=== PATIENT | female | born 1985 | race Two or more races ===

== ENCOUNTER 2019-01-06 14:41 | Emergency (ER) | payer MEDICAID ==
[~2019-01-06] VITALS: Ht 165.1 cm; Wt 81.6 kg
[2019-01-06 16:13] VITALS: BP 142/82
[2019-01-06] MEDS ORDERED: KETOROLAC TROMETH 60MG/2ML VIAL IM ONE (16:45)
[2019-01-06] MEDS ORDERED: cefTRIAXone SOD 1,000 MG VL IM ONE (16:45)
== END 2019-01-06 17:22 | disposition home or self-care (01) ==
LOC: ER 14:41
DX: H66.93 Otitis media, unspecified, bilateral (principal); J03.90 Acute tonsillitis, unspecified
CPT/HCPCS: 81002; 93005; 96372; 99283; J0696; J1885

== ENCOUNTER 2019-02-16 14:53 | Emergency (ER) | payer MEDICAID ==
[~2019-02-16] VITALS: Ht 165.1 cm; Wt 81.6 kg
[2019-02-16 16:04] LABS: Basophils # (auto) 0.1 uL; Basophils % (auto) 0.6 % (0.0-2.0); Eosinophils # (auto) 0.2 uL; Eosinophils % (auto) 1.9 % (0.0-7.0); Hemoglobin 15.5 g/dL (12.2-16.2); Lymphocytes # (auto) 1.1 uL; Lymphocytes % (auto) 12.3 % (10.0-50.0); Mean Corpuscular Hemoglobin 29.2 pg (28.0-32.0); Mean Corpuscular Hgb Conc. 33.7 g/dL (32.0-36.0); Mean Corpuscular Volume 86.5 fL (80.0-100.0); Monocytes # (auto) 0.4 uL; Monocytes % (auto) 3.9 % (0.0-12.0); Neutrophils # (auto) 7.6 uL; Neutrophils % (auto) 81.3 % (37.0-80.0); Platelet Count (auto) 360 10^3/uL (140-450); Red Blood Cells 5.32 10^6/uL (4.0-5.20); White Blood Cell 9.3 10^3/uL (4.4-10.8)
[2019-02-16 16:09] LABS: Urine Amorphous Crystal MOD /hpf (None Seen); Urine Bacteria NONE SEEN /hpf (None Seen); Urine Blood 3+ /uL (Negative); Urine Mucus MODERATE (None Seen); Urine Specific Gravity 1.032 (1.001-1.035); Urine WBC 9 /hpf (0 - 5)
[2019-02-16 16:11] LABS: INR 0.96 (0.9-1.15); Partial Thromboplastin Time 28.8 sec (23.78-33.04); Prothrombin Time 10.3 sec (9.27-12.13)
[2019-02-16 16:15] LABS: Albumin 4.1 g/dL (3.4-5.0); Anion Gap 7 (5-15); Blood Urea Nitrogen 14 mg/dL (7-18); Calcium 8.9 mg/dL (8.5-10.1); Carbon Dioxide 24 mmol/L (21-32); Chloride 109 mmol/L (98-107); Glucose 91 mg/dL (74-106); Magnesium 2.4 mg/dL (1.6-2.6); Potassium 3.8 mmol/L (3.5-5.1); Sodium 140 mmol/L (136-145)
[2019-02-16 16:22] LABS: Alanine Aminotransferase 47 U/L (13-56); Alkaline Phosphatase 108 U/L (45-117); Aspartate Aminotransferase 28 U/L (15-37); BUN/Creatinine Ratio 20.6; Bilirubin, Total 0.7 mg/dL (0.2-1.0); GFR African American 129 mL/min; GFR Non-African American 107 mL/min; Total Protein 8.1 g/dL (6.4-8.2)
[2019-02-16 20:24] VITALS: BP 109/79
== END 2019-02-16 19:42 | disposition home or self-care (01) ==
LOC: ER 14:57
DX: N39.0 Urinary tract infection, site not specified (principal); R19.7 Diarrhea, unspecified; R11.2 Nausea with vomiting, unspecified; R00.1 Bradycardia, unspecified; Z98.51 Tubal ligation status
CPT/HCPCS: 36415; 80053; 81001; 81025; 83735; 83880; 84484; 85025; 85610; 85730; 93005

== ENCOUNTER 2020-04-11 09:58 | Inpatient (IN) | payer MEDICAID ==
[~2020-04-11] VITALS: Ht 165.1 cm; Wt 79.3 kg
[2020-04-11 10:40] LABS: Basophils # (auto) 0.1 10 ^3/uL (0-0.2); Basophils % (auto) 0.7 % (0.0-2.0); Eosinophils # (auto) 0 10 ^3/uL (0-0.8); Eosinophils % (auto) 0.2 % (0.0-7.0); Hematocrit 39.7 % (36.0-46.0); Hemoglobin 13.3 g/dL (12.2-16.2); Lymphocytes # (auto) 1.6 10 ^3/uL (0.4-5.4); Lymphocytes % (auto) 11.6 % (10.0-50.0); Mean Corpuscular Hemoglobin 29.2 pg (28.0-32.0); Mean Corpuscular Hgb Conc. 33.4 g/dL (32.0-36.0); Mean Corpuscular Volume 87.3 fL (80.0-100.0); Monocytes # (auto) 0.5 10 ^3/uL (0-1.3); Monocytes % (auto) 3.7 % (0.0-12.0); Neutrophils # (auto) 11.9 10 ^3/uL (1.6-8.6); Neutrophils % (auto) 83.8 % (37.0-80.0); Platelet Count (auto) 349 10^3/uL (140-450); Red Blood Cells 4.55 10^6/uL (4.0-5.20); White Blood Cell 14.2 10^3/uL (4.4-10.8)
[2020-04-11 10:56] LABS: Urine Amorphous Crystal FEW /hpf (None Seen); Urine Bacteria NONE SEEN /hpf (None Seen); Urine Blood TRACE /uL (Negative); Urine Mucus FEW (None Seen); Urine Specific Gravity 1.021 (1.001-1.035); Urine WBC <1 /hpf (0 - 5)
[2020-04-11 11:13] LABS: Albumin 3.7 g/dL (3.4-5.0)
[2020-04-11 11:17] LABS: BUN/Creatinine Ratio 21.4; Bilirubin, Total 0.7 mg/dL (0.2-1.0); Total Protein 7.2 g/dL (6.4-8.2)
[2020-04-11] MEDS ORDERED: SODIUM CHLORIDE 0.9% 2,000 ML IV ONE (12:15)
[2020-04-11] MEDS ORDERED: MORPHINE SULFATE 4 MG/ML SYR/VIAL IV ONE (12:15)
[2020-04-11] MEDS ORDERED: cefTRIAXone 1GM/50ML D5W 50 ML IV ONE (12:15)
[2020-04-11] MEDS ORDERED: ONDANSETRON HCL 4 MG/2 ML VIAL IV ONE (12:15)
[2020-04-11] MEDS ORDERED: OMNIPAQUE ORAL SOLN 500ml 12mg/ml PO ONE (12:46)
[2020-04-11] MEDS ORDERED: IOHEXOL 300 MG/ML 100ML BOTTLE IJ ONE ×2 (12:58→14:54)
[2020-04-11 13:31] LABS: INR 1.01 (0.9-1.15); Partial Thromboplastin Time 27.3 sec (23.64-32.05)
[2020-04-11] MEDS ORDERED: LACTATED RINGER'S 1,000 ML IV ONE (15:00)
[2020-04-11 15:13] LABS: Alcohol, Urine < 3.0 mg/dL (0-10); Amphetamine Screen, Urine NEGATIVE (NEGATIVE); Barbiturate Scree,Urine NEGATIVE (NEGATIVE); Benzodiazephine Screen, Urine NEGATIVE (NEGATIVE); Cannabinoid Screen, Urine NEGATIVE (NEGATIVE); Cocaine Screen, Urine NEGATIVE (NEGATIVE); Opiate Scree,Urine NEGATIVE (NEGATIVE); Phencyclidine Screen, Urine NEGATIVE (NEGATIVE)
[2020-04-11] MEDS: SODIUM CHLORIDE 0.9% 1,000 ML IV SCH (15:43)
[2020-04-11] MEDS ORDERED: levoFLOXacin 500MG 100 ML IV ONE (15:45)
[2020-04-11] MEDS ORDERED: MORPHINE SULF INJ 2 MG/ML SYRINGE 1ML IV PRN (15:45)
[2020-04-11] MEDS ORDERED: NITROGLYCERIN 0.4 MG SL TAB SL PRN (15:45)
[2020-04-11 15:59] LABS: Basophils # (auto) 0 10 ^3/uL (0-0.2); Basophils % (auto) 0.3 % (0.0-2.0); Eosinophils # (auto) 0 10 ^3/uL (0-0.8); Eosinophils % (auto) 0.3 % (0.0-7.0); Hematocrit 37.4 % (36.0-46.0); Hemoglobin 12.6 g/dL (12.2-16.2); Lymphocytes # (auto) 1.7 10 ^3/uL (0.4-5.4); Mean Corpuscular Hemoglobin 29.6 pg (28.0-32.0); Mean Corpuscular Hgb Conc. 33.7 g/dL (32.0-36.0); Mean Corpuscular Volume 87.8 fL (80.0-100.0); Monocytes # (auto) 0.4 10 ^3/uL (0-1.3); Monocytes % (auto) 3.8 % (0.0-12.0); Neutrophils # (auto) 9.2 10 ^3/uL (1.6-8.6); Neutrophils % (auto) 80.6 % (37.0-80.0); Platelet Count (auto) 305 10^3/uL (140-450); Red Blood Cells 4.26 10^6/uL (4.0-5.20); Red Cell Distribution Width 13.8 % (11.8-14.3); White Blood Cell 11.5 10^3/uL (4.4-10.8)
[2020-04-11] MEDS: PROMETHAZINE HCL 25 MG/ML 1ML IV PRN (16:11)
[2020-04-11] MEDS: MORPHINE SULF INJ 2 MG/ML SYRINGE 1ML IV PRN ×2 (16:12→21:46)
[2020-04-11] MEDS: ceFAZolin 1GM/50ML 50 ML IV SCH ×2 (16:24→22:57)
[2020-04-11] MEDS: FAMOTIDINE (10MG/ML) 2ML VL IV SCH (17:42)
[2020-04-11] MEDS: metroNIDAZOLE 500MG/100ML 100 ML IV SCH (21:45)
[2020-04-11 22:00] VITALS: BP_SYST 104; BP_SYST 118; BP_DIAS 68; BP_DIAS 72
[2020-04-12] MEDS: TEMAZEPAM 15 MG CAP PO PRN ×2 (01:58→22:34)
[2020-04-12] MEDS: SODIUM CHLORIDE 0.9% 1,000 ML IV SCH (01:58)
[2020-04-12] MEDS: MORPHINE SULF INJ 2 MG/ML SYRINGE 1ML IV PRN ×3 (01:58→21:12)
--- NOTE | 2020-04-12 02:55 | NUR ---
12 LEAD EKG DONE. IN PATIENTS CHART.
[2020-04-12] MEDS: FAMOTIDINE (10MG/ML) 2ML VL IV SCH ×2 (03:45→16:30)
[2020-04-12 05:00] VITALS: BP 111/70
[2020-04-12] MEDS: metroNIDAZOLE 500MG/100ML 100 ML IV SCH ×3 (05:58→21:45)
--- NOTE | 2020-04-12 06:27 | NUR ---
PREOP CHECKLIST COMPLETED. PATIENT HAS SIGNED CONSENTS. WIPED ABDOMEN WITH [employer] SANITIZERS ONLY.
[2020-04-12] MEDS: ceFAZolin 1GM/50ML 50 ML IV SCH ×3 (06:36→22:40)
--- NOTE | 2020-04-12 06:57 | NUR ---
PATIENT TRANSFERRED TO THE OPERATING ROOM.
[2020-04-12] MEDS ORDERED: ceFAZolin 1GM/50ML 50 ML IV ONE (07:03)
[2020-04-12] MEDS ORDERED: fentaNYL CITRATE 100 MCG/2 ML VL ONE (07:54)
[2020-04-12] MEDS ORDERED: MEPERIDINE HCL (50 MG/ML) 1 ML VIAL ONE (07:55)
[2020-04-12] MEDS ORDERED: MIDAZOLAM HCL 1MG/1ML-2 ML VIAL ONE (07:55)
[2020-04-12] MEDS ORDERED: PROPOFOL 10 MG/ML 20 ML IV ONE (08:10)
[2020-04-12] MEDS ORDERED: DexAMETHasone SOD PHOS 10MG/1ML VIAL INJ ONE (08:10)
[2020-04-12] MEDS ORDERED: ONDANSETRON HCL 4 MG/2 ML VIAL ONE (08:21)
[2020-04-12] MEDS ORDERED: LABETALOL HCL 5 MG/ML 4ML SYRINGE IV PRN (08:30)
[2020-04-12] MEDS ORDERED: MIDAZOLAM HCL 1MG/1ML-2 ML VIAL IV PRN (08:30)
[2020-04-12] MEDS ORDERED: ONDANSETRON HCL 4 MG/2 ML VIAL IV PRN (08:30)
[2020-04-12] MEDS ORDERED: MORPHINE SULFATE 4 MG/ML SYR/VIAL IV PRN (08:30)
[2020-04-12] MEDS ORDERED: ePHEDrine SULFATE 50 MG/ML AMP IV PRN (08:30)
[2020-04-12] MEDS ORDERED: POVIDONE IODINE 10 % TOPICAL OINT 30GM TOP ONE (09:02)
[2020-04-12] MEDS: HYDROmorphone HCL 2 MG/ML VL IV PRN ×2 (09:55→10:15)
[2020-04-12] MEDS ORDERED: SODIUM CHLORIDE 0.9% 1,000 ML IV SCH (10:00)
--- NOTE | 2020-04-12 10:30 | NUR ---
Received patient from OR Patient complaining of pain 07/13. Patient was just medicated with Dilaudid 0.5 mg IV Once per OR nurse. Abdominal dressing clean, dry, no bleeding noted, TERENCE present. Will continue to monitor.
[2020-04-12] MEDS: levoFLOXacin 500MG 100 ML IV SCH (10:47)
[2020-04-12 11:14] LABS: Basophils # (auto) 0 10 ^3/uL (0-0.2); Basophils % (auto) 0.1 % (0.0-2.0); Eosinophils # (auto) 0 10 ^3/uL (0-0.8); Eosinophils % (auto) 0.2 % (0.0-7.0); Hematocrit 37.5 % (36.0-46.0); Hemoglobin 12.2 g/dL (12.2-16.2); Lymphocytes # (auto) 0.7 10 ^3/uL (0.4-5.4); Lymphocytes % (auto) 5.6 % (10.0-50.0); Mean Corpuscular Hemoglobin 29.1 pg (28.0-32.0); Mean Corpuscular Hgb Conc. 32.6 g/dL (32.0-36.0); Mean Corpuscular Volume 89.4 fL (80.0-100.0); Monocytes # (auto) 0.2 10 ^3/uL (0-1.3); Monocytes % (auto) 1.5 % (0.0-12.0); Neutrophils # (auto) 11.5 10 ^3/uL (1.6-8.6); Neutrophils % (auto) 92.6 % (37.0-80.0); Platelet Count (auto) 275 10^3/uL (140-450); Red Cell Distribution Width 14.3 % (11.8-14.3); White Blood Cell 12.4 10^3/uL (4.4-10.8)
[2020-04-12 11:32] LABS: Calcium 8.2 mg/dL (8.5-10.1); Potassium 3.7 mmol/L (3.5-5.1)
[2020-04-12] MEDS ORDERED: TRAM50TA2 PO (11:35)
[2020-04-12 11:36] LABS: BUN/Creatinine Ratio 14.3; Bilirubin, Total 0.4 mg/dL (0.2-1.0); Total Protein 6.3 g/dL (6.4-8.2)
[2020-04-12 12:37] VITALS: BP 104/68
[2020-04-12] MEDS: D5W/SOD CHL 0.45%/KCL 20MEQ 1,000 ML IV SCH ×2 (14:44→22:40)
[2020-04-12 16:56] VITALS: BP 110/63
[2020-04-12] MEDS ORDERED: CHOL100039 (18:28)
[2020-04-12] MEDS ORDERED: ALBU108A5 (18:28)
[2020-04-12] MEDS ORDERED: ALBUTEROL SULF 2.5 MG/0.5ML(0.5%) NEB SOLN NEB PRN (18:30)
[2020-04-12] MEDS ORDERED: MORPHINE SULF INJ 2 MG/ML SYRINGE 1ML IV ONE (18:30)
--- NOTE | 2020-04-12 19:00 | NUR ---
TERENCE drain 200 ml of serosanguineous output on shift.
[2020-04-12 19:22] VITALS: BP 110/63
[2020-04-13] MEDS: MORPHINE SULF INJ 2 MG/ML SYRINGE 1ML IV PRN ×5 (01:12→18:34)
[2020-04-13] MEDS: FAMOTIDINE (10MG/ML) 2ML VL IV SCH ×2 (04:10→17:04)
[2020-04-13 05:57] LABS: Basophils # (auto) 0 10 ^3/uL (0-0.2); Basophils % (auto) 0.3 % (0.0-2.0); Eosinophils # (auto) 0 10 ^3/uL (0-0.8); Hematocrit 37.6 % (36.0-46.0); Hemoglobin 12.5 g/dL (12.2-16.2); Lymphocytes # (auto) 0.8 10 ^3/uL (0.4-5.4); Lymphocytes % (auto) 5.7 % (10.0-50.0); Mean Corpuscular Hemoglobin 29.2 pg (28.0-32.0); Mean Corpuscular Hgb Conc. 33.3 g/dL (32.0-36.0); Mean Corpuscular Volume 87.7 fL (80.0-100.0); Monocytes # (auto) 0.6 10 ^3/uL (0-1.3); Monocytes % (auto) 4.3 % (0.0-12.0); Neutrophils # (auto) 12.2 10 ^3/uL (1.6-8.6); Neutrophils % (auto) 89.7 % (37.0-80.0); Platelet Count (auto) 332 10^3/uL (140-450); Red Blood Cells 4.29 10^6/uL (4.0-5.20); Red Cell Distribution Width 13.6 % (11.8-14.3); White Blood Cell 13.6 10^3/uL (4.4-10.8)
[2020-04-13] MEDS: metroNIDAZOLE 500MG/100ML 100 ML IV SCH ×3 (05:59→21:53)
[2020-04-13 06:10] LABS: BUN/Creatinine Ratio 21.3; Calcium 8.7 mg/dL (8.5-10.1); Potassium 3.9 mmol/L (3.5-5.1)
[2020-04-13] MEDS: ceFAZolin 1GM/50ML 50 ML IV SCH ×2 (06:59→17:04)
[2020-04-13] MEDS: D5W/SOD CHL 0.45%/KCL 20MEQ 1,000 ML IV SCH ×3 (06:59→23:35)
--- NOTE | 2020-04-13 07:35 | NUR ---
Opening Shift Note Assumed care of patient, awake and alert. No S/S of distress/SOB or pain. Instructed on POC and to call for assist PRN, will continue to monitor for changes Q1hr and PRN. Bed locked in lowest position with two side rails up and call light in reach.
[2020-04-13 08:00] VITALS: BP 109/59
[2020-04-13 09:00] VITALS: BP 109/59
--- NOTE | 2020-04-13 09:15 | NUR ---
PATIENT COMPLAINING OF BINGHAM CATHETER PAIN AND LEAKING. ASSESSED PATIENT AND BINGHAM IS LEAKING AND IS SLIGHTLY PULLED OUT. I ASKED PATIENT IF SHE WOULD LIKE ME TO REPLACE BINGHAM AND SHE WOULD LIGHT TO HAVE IT REMOVED AT THIS TIME.
--- NOTE | 2020-04-13 09:25 | NUR ---
PATIENT AMBULATED TO BATHROOM IN PAIN BUT TOLERATED WELL. PATIENT ALSO URINATED.
[2020-04-13] MEDS: levoFLOXacin 500MG 100 ML IV SCH (10:06)
[2020-04-13 13:00] VITALS: BP 100/70
[2020-04-13 17:00] VITALS: BP 104/56
[2020-04-13] MEDS ORDERED: MORPHINE SULFATE 4 MG/ML SYR/VIAL IV PRN (18:00)
--- NOTE | 2020-04-13 18:37 | NUR ---
TOTAL TERENCE DRAIN OUT 15 CC
[2020-04-13] MEDS ORDERED: SIMETHICONE 80 MG CHEWABLE TABLET PO PRN (18:45)
--- NOTE | 2020-04-13 18:46 | NUR ---
RT NOTE PT WAS SEEN BY RT FOR PRN HHN TX ASSESSMENT. PT STATES NO TX NEEDED AT THIS TIME. PT STATES SHE WILL CALL IF TX NEEDED. HR 95, RR 16, BS CLEAR, POX 97% ON ROOM AIR. NO PRN TX INDICATED AT THIS TIME. CONT ORDERED Addendum: 04/13/20 at 1848 by Adrianna Soler RT Amended: Links added.
[2020-04-13] MEDS: HYDROcodone-ACET 5/325MG TAB PO PRN (21:27)
[2020-04-13] MEDS: TEMAZEPAM 15 MG CAP PO PRN (21:53)
[2020-04-13] MEDS: DOCUSATE SOD 100 MG CAP PO SCH (21:53)
[2020-04-13 22:00] VITALS: BP 126/67
[2020-04-14] MEDS: MORPHINE SULF INJ 2 MG/ML SYRINGE 1ML IV PRN ×4 (01:05→23:53)
[2020-04-14] MEDS: PIPERACILLIN-TAZOB 3.375GM 100 ML IV SCH ×5 (01:10→23:52)
[2020-04-14] MEDS: FAMOTIDINE (10MG/ML) 2ML VL IV SCH (03:47)
[2020-04-14] MEDS: HYDROcodone-ACET 5/325MG TAB PO PRN ×3 (04:56→20:21)
[2020-04-14] MEDS: metroNIDAZOLE 500MG/100ML 100 ML IV SCH ×3 (04:56→22:46)
[2020-04-14 06:00] VITALS: BP 98/53
[2020-04-14 06:31] LABS: Basophils # (auto) 0 10 ^3/uL (0-0.2); Basophils % (auto) 0.3 % (0.0-2.0); Eosinophils # (auto) 0.1 10 ^3/uL (0-0.8); Eosinophils % (auto) 0.8 % (0.0-7.0); Hematocrit 34.9 % (36.0-46.0); Hemoglobin 11.7 g/dL (12.2-16.2); Lymphocytes # (auto) 2.2 10 ^3/uL (0.4-5.4); Lymphocytes % (auto) 26.1 % (10.0-50.0); Mean Corpuscular Hemoglobin 29.5 pg (28.0-32.0); Mean Corpuscular Hgb Conc. 33.5 g/dL (32.0-36.0); Mean Corpuscular Volume 87.9 fL (80.0-100.0); Monocytes # (auto) 0.7 10 ^3/uL (0-1.3); Monocytes % (auto) 8.5 % (0.0-12.0); Neutrophils # (auto) 5.3 10 ^3/uL (1.6-8.6); Neutrophils % (auto) 64.3 % (37.0-80.0); Platelet Count (auto) 326 10^3/uL (140-450); Red Blood Cells 3.97 10^6/uL (4.0-5.20); Red Cell Distribution Width 13.8 % (11.8-14.3); White Blood Cell 8.3 10^3/uL (4.4-10.8)
[2020-04-14 06:49] LABS: Potassium 3.7 mmol/L (3.5-5.1)
[2020-04-14 06:51] LABS: Calcium 8.5 mg/dL (8.5-10.1)
--- NOTE | 2020-04-14 07:23 | NUR ---
End of Shift Note Endorsed care to dayshift RN. At this time patient has no s/s of distress or SOB.
[2020-04-14] MEDS: D5W/SOD CHL 0.45%/KCL 20MEQ 1,000 ML IV SCH (07:55)
[2020-04-14 08:00] VITALS: BP 115/71
[2020-04-14 09:00] VITALS: BP 115/71
[2020-04-14] MEDS: DOCUSATE SOD 100 MG CAP PO SCH ×2 (10:01→22:00)
[2020-04-14] MEDS: levoFLOXacin 500MG 100 ML IV SCH (10:01)
--- NOTE | 2020-04-14 10:41 | NUR ---
Respiratory note: PT ASSESSED FOR PRN MED NEB. ON ROOM AIR SP02 98%. HR 91, RR18. BS ARE CLEAR. NO TX INDICATED AT THIS TIME.
[2020-04-14] MEDS: PROMETHAZINE HCL 25 MG/ML 1ML IV PRN (10:54)
[2020-04-14 13:00] VITALS: BP 104/73
--- NOTE | 2020-04-14 14:11 | NUR ---
Nutrition Assessment Notes Please see attached link for complete assessment Est energy needs BW 79 [id number] kcal (23-25 kcal/kg BW) Est protein needs 79-86g (1.0-1.1g/kg BW) Will reassess prn. Addendum: 04/14/20 at [address] Amended: Links added.
[2020-04-14 18:22] VITALS: BP 119/69
--- NOTE | 2020-04-14 19:18 | NUR ---
TERENCE DRAIN 15 CC OUT FOR MY SHIFT
[2020-04-14 21:34] VITALS: BP 114/81
[2020-04-14] MEDS: TEMAZEPAM 15 MG CAP PO PRN (22:34)
[2020-04-15] MEDS: HYDROcodone-ACET 5/325MG TAB PO PRN ×2 (02:58→10:36)
[2020-04-15 05:12] VITALS: BP 109/63
[2020-04-15] MEDS: metroNIDAZOLE 500MG/100ML 100 ML IV SCH ×3 (05:17→22:00)
[2020-04-15 05:39] LABS: Basophils # (auto) 0.1 10 ^3/uL (0-0.2); Basophils % (auto) 0.8 % (0.0-2.0); Eosinophils # (auto) 0.4 10 ^3/uL (0-0.8); Eosinophils % (auto) 6.6 % (0.0-7.0); Hematocrit 37.1 % (36.0-46.0); Hemoglobin 12.5 g/dL (12.2-16.2); Lymphocytes # (auto) 2.2 10 ^3/uL (0.4-5.4); Lymphocytes % (auto) 36.3 % (10.0-50.0); Mean Corpuscular Hemoglobin 29.6 pg (28.0-32.0); Mean Corpuscular Hgb Conc. 33.7 g/dL (32.0-36.0); Mean Corpuscular Volume 87.8 fL (80.0-100.0); Monocytes # (auto) 0.6 10 ^3/uL (0-1.3); Monocytes % (auto) 9.2 % (0.0-12.0); Neutrophils # (auto) 2.9 10 ^3/uL (1.6-8.6); Neutrophils % (auto) 47.1 % (37.0-80.0); Platelet Count (auto) 329 10^3/uL (140-450); Red Blood Cells 4.22 10^6/uL (4.0-5.20); Red Cell Distribution Width 13.8 % (11.8-14.3); White Blood Cell 6.2 10^3/uL (4.4-10.8)
[2020-04-15 06:06] LABS: BUN/Creatinine Ratio 17.6; Calcium 8.3 mg/dL (8.5-10.1); Potassium 3.6 mmol/L (3.5-5.1)
[2020-04-15] MEDS: PIPERACILLIN-TAZOB 3.375GM 100 ML IV SCH ×3 (06:13→17:30)
[2020-04-15] MEDS: MORPHINE SULF INJ 2 MG/ML SYRINGE 1ML IV PRN ×3 (06:14→20:09)
--- NOTE | 2020-04-15 06:50 | NUR ---
TERENCE DRAIN OUTPUT 10CC SEROUS
--- NOTE | 2020-04-15 07:40 | NUR ---
End of Shift Note Endorsed care to dayshift RN. At this time patient has no s/s of distress or SOB. Resting in bed with respirations even and unlabored.
[2020-04-15 08:00] VITALS: BP 100/61
[2020-04-15 09:00] VITALS: BP 100/61
[2020-04-15] MEDS: CHOLECALCIFEROL (VITD3) 1,000UNIT=25mCg TAB PO SCH (09:06)
[2020-04-15] MEDS: levoFLOXacin 500MG 100 ML IV SCH (09:06)
[2020-04-15] MEDS: PANTOPRAZOLE 40 MG TAB PO SCH (09:06)
[2020-04-15] MEDS: DOCUSATE SOD 100 MG CAP PO SCH ×2 (09:06→22:00)
[2020-04-15] MEDS: PROMETHAZINE HCL 25 MG/ML 1ML IV PRN (10:37)
--- NOTE | 2020-04-15 10:45 | NUR ---
DR. PEREZ AT BED SIDE ASSESSING PATIENT
[2020-04-15 12:04] LABS: Urine Bacteria NONE SEEN /hpf (None Seen); Urine Blood Negative /uL (Negative); Urine WBC <1 /hpf (0 - 5)
[2020-04-15 13:00] VITALS: BP 117/63
[2020-04-15 17:00] VITALS: BP 117/72
[2020-04-15 22:00] VITALS: BP 110/67
[2020-04-16] MEDS: PIPERACILLIN-TAZOB 3.375GM 100 ML IV SCH ×4 (00:35→17:47)
[2020-04-16] MEDS: MORPHINE SULF INJ 2 MG/ML SYRINGE 1ML IV PRN ×3 (03:07→14:50)
[2020-04-16] MEDS: metroNIDAZOLE 500MG/100ML 100 ML IV SCH ×3 (05:02→21:38)
[2020-04-16 05:56] VITALS: BP 108/70
--- NOTE | 2020-04-16 07:29 | NUR ---
TERENCE DRAIN 15 CC OUT FOR MY SHIFT
[2020-04-16 08:00] VITALS: BP 122/66
[2020-04-16 09:00] VITALS: BP 122/66
[2020-04-16] MEDS: PROMETHAZINE HCL 25 MG/ML 1ML IV PRN ×2 (09:35→14:50)
[2020-04-16] MEDS: levoFLOXacin 500MG 100 ML IV SCH (09:35)
[2020-04-16] MEDS: CHOLECALCIFEROL (VITD3) 1,000UNIT=25mCg TAB PO SCH (09:42)
[2020-04-16] MEDS: DOCUSATE SOD 100 MG CAP PO SCH ×2 (09:42→21:37)
[2020-04-16] MEDS: PANTOPRAZOLE 40 MG TAB PO SCH (09:42)
--- NOTE | 2020-04-16 10:00 | NUR ---
PATIENT COMPLAINING OF ABDOMINAL PAIN AND NAUSEA 9/10 PAIN PATIENT MEDICATED PER EMAR
[2020-04-16 12:30] VITALS: BP 120/79
--- NOTE | 2020-04-16 12:50 | NUR ---
Continuation of care: Received report on patient. Patient resting in bed. No S/S of distress.
[2020-04-16 16:50] VITALS: BP 110/71
--- NOTE | 2020-04-16 18:40 | NUR ---
TERENCE drain output 15mL
--- NOTE | 2020-04-16 18:49 | NUR ---
CLOSING NOTE: Patient resting in bed. No S/S of distress at this time. Care endorsed to NOC RN.
--- NOTE | 2020-04-16 21:13 | NUR ---
Spoke to MD Moyer and notified him of patient wanting to advance diet, and notified him also, per report patient did have bouts of nausea and vomiting during the day. MD Moyer provided no new orders, and to keep patient NPO at this time.
[2020-04-16 23:36] VITALS: BP 120/76
[2020-04-17] VITALS (7 sets, daily range): BP systolic 99–125; BP diastolic 65–77
[2020-04-17] MEDS: PIPERACILLIN-TAZOB 3.375GM 100 ML IV SCH ×2 (00:12→06:13)
[2020-04-17] MEDS: metroNIDAZOLE 500MG/100ML 100 ML IV SCH (04:51)
--- NOTE | 2020-04-17 07:29 | NUR ---
TERENCE DRAIN 10 CC OUT FOR MY SHIFT
--- NOTE | 2020-04-17 07:31 | NUR ---
PROVIDED REPORT TO DAY RN. PATIENT HAS NO SIGNS OF DISTRESS OR SOB. NOTIFIED RN OF TERENCE OUTPUT IS 10.
[2020-04-17] MEDS ORDERED: KETOROLAC TROMETH 30 MG/ML 1ML VIAL IV PRN (08:45)
[2020-04-17] MEDS ORDERED: HYDROmorphone HCL 2 MG/ML VL IV PRN (08:45)
[2020-04-17] MEDS: DOCUSATE SOD 100 MG CAP PO SCH (09:39)
[2020-04-17] MEDS: CHOLECALCIFEROL (VITD3) 1,000UNIT=25mCg TAB PO SCH (09:40)
[2020-04-17] MEDS: PANTOPRAZOLE 40 MG TAB PO SCH (09:40)
[2020-04-17] MEDS ORDERED: ceFAZolin 1GM/50ML 50 ML IV SCH (14:00)
--- NOTE | 2020-04-17 15:20 | NUR ---
TERENCE DRAINED REMOVED BY DR DAVISON, PATIENT TOLERATED WELL, DRESSING AND GAUZE PLACED.
--- NOTE | 2020-04-17 15:54 | NUR ---
assessment Patient has no post discharge needs identified at this time. Addendum: 04/17/20 at 1555 by Perlita HAY Amended: Links added.
--- NOTE | 2020-04-17 17:36 | NUR ---
Discharge instructions given as ordered. Encourage to follow up with PMD as instructed. All questions and concerns addressed. Patient verbalized understanding. Medication reconciliation form completed and copy given to patient. No Home medications held in Pharmacy and none to be returned to patient, and no needed vaccines given. IV removed with catheter intact, pressure dressing applied. Telemetry unit returned to ICU. Patient taken to vehicle via wheelchair with all personal belongings including prescriptions for antibiotics and [employer], accompanied by staff. No distress noted at time of departure. Abdominal incisions clean and dry no redness or discharge, patient instructed on splinting when coughing, getting up to stand etc. Patient has abdominal binder on. Mack drain removed gauze and tegaderm placed, CDI.
== END 2020-04-17 17:45 | disposition home or self-care (01) | DRG 793 ==
LOC: ER 09:58 → TELE 09:59 → TELE-WESTW 21:09
PROVIDERS: ADMIT Internal Medicine; ATTEND Internal Medicine
PROC: 0UQG0ZZ Repair Vagina, Open Approach (ICD-10-PCS; principal; 2020-04-12 07:53)
DX: T81.32XA Disruption of internal operation (surgical) wound, not elsewhere classified, initial encounter (principal); S31.43XA Puncture wound without foreign body of vagina and vulva, initial encounter; D72.829 Elevated white blood cell count, unspecified; M54.9 Dorsalgia, unspecified; J45.909 Unspecified asthma, uncomplicated; K80.20 Calculus of gallbladder without cholecystitis without obstruction; E55.9 Vitamin D deficiency, unspecified; K21.9 Gastro-esophageal reflux disease without esophagitis; G89.29 Other chronic pain; X58.XXXA Exposure to other specified factors, initial encounter; Y93.89 Activity, other specified; Z90.710 Acquired absence of both cervix and uterus; Y92.89 Other specified places as the place of occurrence of the external cause; Y99.8 Other external cause status; Z98.51 Tubal ligation status; F11.20 Opioid dependence, uncomplicated
CPT/HCPCS: 36415; 74176; 74177; 80048; 80053; 80307; 81001; 81025; 82150; 83690; 85025; 85610; 85730; 86850; 86900; 86901; 87040; 87070; 87075; 87086; 87088; 87186; 87205; 93005; 96365; 96375; G0378; J0690; J0696; J1100; J1956; J2250; J2405; J2543; J2704; J3490

== ENCOUNTER 2020-08-04 09:34 | Emergency (ER) | payer MEDICAID ==
[~2020-08-04] VITALS: Ht 165.1 cm; Wt 77.1 kg
[~2020-08-04 09:34] MED LIST: ALBU108A5; CHOL100039; TRAM50TA2 PO
[2020-08-04] MEDS ORDERED: ONDANSETRON ODT 4 MG TAB PO ONE (10:00)
[2020-08-04 10:29] LABS: Basophils # (auto) 0 10 ^3/uL (0-0.2); Basophils % (auto) 0.8 % (0.0-2.0); Eosinophils # (auto) 0.2 10 ^3/uL (0-0.8); Eosinophils % (auto) 2.8 % (0.0-7.0); Hematocrit 39.8 % (36.0-46.0); Hemoglobin 13.6 g/dL (12.2-16.2); Lymphocytes % (auto) 34.9 % (10.0-50.0); Mean Corpuscular Hemoglobin 29.9 pg (28.0-32.0); Mean Corpuscular Hgb Conc. 34.3 g/dL (32.0-36.0); Mean Corpuscular Volume 87.2 fL (80.0-100.0); Monocytes # (auto) 0.5 10 ^3/uL (0-1.3); Monocytes % (auto) 8.2 % (0.0-12.0); Neutrophils # (auto) 3.1 10 ^3/uL (1.6-8.6); Neutrophils % (auto) 53.3 % (37.0-80.0); Platelet Count (auto) 342 10^3/uL (140-450); Red Blood Cells 4.56 10^6/uL (4.0-5.20); White Blood Cell 5.8 10^3/uL (4.4-10.8)
[2020-08-04 10:32] LABS: Urine Bacteria FEW /hpf (None Seen); Urine Blood Negative /uL (Negative); Urine Mucus FEW (None Seen); Urine Specific Gravity 1.021 (1.001-1.035); Urine WBC 1 /hpf (0 - 5)
[2020-08-04 10:42] LABS: Albumin 3.7 g/dL (3.4-5.0); Calcium 8.4 mg/dL (8.5-10.1); Potassium 3.8 mmol/L (3.5-5.1)
[2020-08-04 10:45] LABS: BUN/Creatinine Ratio 18.5; Bilirubin, Total 0.5 mg/dL (0.2-1.0)
[2020-08-04 13:05] VITALS: BP 128/91
== END 2020-08-04 13:08 | disposition home or self-care (01) ==
LOC: ER 09:34
DX: R10.30 Lower abdominal pain, unspecified (principal); R11.2 Nausea with vomiting, unspecified; Z90.710 Acquired absence of both cervix and uterus; Z98.51 Tubal ligation status
CPT/HCPCS: 36415; 74176; 80053; 81001; 85025; 99284; Q0162

== ENCOUNTER 2020-08-07 15:00 | Emergency (ER) | payer MEDICAID ==
[~2020-08-07] VITALS: Ht 165.1 cm; Wt 77.1 kg
[2020-08-07 15:51] LABS: Urine Bacteria NONE SEEN /hpf (None Seen); Urine Blood 3+ /uL (Negative); Urine Budding Yeast OCCASIONAL /hpf (None Seen); Urine Mucus FEW (None Seen); Urine Specific Gravity 1.019 (1.001-1.035); Urine WBC 586 /hpf (0 - 5)
[2020-08-07] MEDS ORDERED: SODIUM CHLORIDE 0.9% 1,000 ML IV ONE (16:45)
[2020-08-07] MEDS ORDERED: cefTRIAXone 1GM/50ML D5W 50 ML IV ONE (16:45)
[2020-08-07] MEDS ORDERED: ONDANSETRON HCL 4 MG/2 ML VIAL IV ONE (16:45)
[2020-08-07] MEDS ORDERED: HYDROcodone-ACET 10/325MG TAB PO ONE (16:45)
[2020-08-07 17:10] LABS: Nucleated Red Blood Cells % 0.1 %; White Blood Cell 10.4 10^3/uL (4.4-10.8)
[2020-08-07 17:16] LABS: Basophils # (auto) 0 10 ^3/uL (0-0.2); Basophils % (auto) 0.4 % (0.0-2.0); Eosinophils # (auto) 0.1 10 ^3/uL (0-0.8); Hematocrit 40.7 % (36.0-46.0); Hemoglobin 13.9 g/dL (12.2-16.2); Lymphocytes # (auto) 1.6 10 ^3/uL (0.4-5.4); Lymphocytes % (auto) 15.7 % (10.0-50.0); Mean Corpuscular Hemoglobin 29.8 pg (28.0-32.0); Mean Corpuscular Hgb Conc. 34.1 g/dL (32.0-36.0); Mean Corpuscular Volume 87.4 fL (80.0-100.0); Monocytes # (auto) 0.6 10 ^3/uL (0-1.3); Monocytes % (auto) 5.4 % (0.0-12.0); Neutrophils # (auto) 8.1 10 ^3/uL (1.6-8.6); Neutrophils % (auto) 77.5 % (37.0-80.0); Platelet Count (auto) 363 10^3/uL (140-450); Red Blood Cells 4.65 10^6/uL (4.0-5.20); Red Cell Distribution Width 13.9 % (11.8-14.3)
[2020-08-07 17:26] LABS: Partial Thromboplastin Time 27.1 sec (23.0-31.2)
[2020-08-07 17:28] LABS: Amylase 37 U/L (25-115); Lipase 80 U/L (73-393)
[2020-08-07 17:31] LABS: Albumin 3.9 g/dL (3.4-5.0); Potassium 4.1 mmol/L (3.5-5.1)
[2020-08-07 17:34] LABS: BUN/Creatinine Ratio 17.2; Bilirubin, Total 0.3 mg/dL (0.2-1.0); Total Protein 7.4 g/dL (6.4-8.2)
[2020-08-07 18:02] LABS: Amphetamine Screen, Urine NEGATIVE (NEGATIVE); Barbiturate Scree,Urine NEGATIVE (NEGATIVE); Benzodiazephine Screen, Urine NEGATIVE (NEGATIVE); Cannabinoid Screen, Urine NEGATIVE (NEGATIVE); Cocaine Screen, Urine NEGATIVE (NEGATIVE); Opiate Scree,Urine NEGATIVE (NEGATIVE); Phencyclidine Screen, Urine NEGATIVE (NEGATIVE)
[2020-08-07] MEDS ORDERED: ONDANSETRON ODT 4 MG TAB PO ONE ×2 (18:56→19:00)
[2020-08-07 19:30] VITALS: BP 120/70
== END 2020-08-07 21:28 | disposition home or self-care (01) ==
LOC: ER 15:00
DX: N39.0 Urinary tract infection, site not specified (principal); N93.9 Abnormal uterine and vaginal bleeding, unspecified; E86.0 Dehydration; K57.30 Diverticulosis of large intestine without perforation or abscess without bleeding
CPT/HCPCS: 36415; 74177; 76830; 76856; 80053; 80307; 81001; 82150; 83690; 85025; 85610; 85730; 96365; 99285; J0696; Q0162

== ENCOUNTER 2020-09-01 11:11 | Emergency (ER) | payer MEDICAID ==
[~2020-09-01] VITALS: Ht 165.1 cm; Wt 75.3 kg
[2020-09-01] MEDS ORDERED: ONDANSETRON HCL 4 MG/2 ML VIAL IV ONE (11:45)
[2020-09-01] MEDS ORDERED: SODIUM CHLORIDE 0.9% 1,000 ML IV ONE (11:45)
[2020-09-01] MEDS ORDERED: MORPHINE SULFATE 4 MG/ML SYR/VIAL IV ONE (11:45)
[2020-09-01 12:49] LABS: Basophils # (auto) 0 10 ^3/uL (0-0.2); Basophils % (auto) 0.5 % (0.0-2.0); Eosinophils # (auto) 0.1 10 ^3/uL (0-0.8); Eosinophils % (auto) 1.3 % (0.0-7.0); Hematocrit 44.3 % (36.0-46.0); Hemoglobin 14.7 g/dL (12.2-16.2); Lymphocytes # (auto) 2.6 10 ^3/uL (0.4-5.4); Lymphocytes % (auto) 32.4 % (10.0-50.0); Mean Corpuscular Hemoglobin 29.3 pg (28.0-32.0); Mean Corpuscular Hgb Conc. 33.1 g/dL (32.0-36.0); Mean Corpuscular Volume 88.4 fL (80.0-100.0); Monocytes # (auto) 0.5 10 ^3/uL (0-1.3); Monocytes % (auto) 6.7 % (0.0-12.0); Neutrophils # (auto) 4.8 10 ^3/uL (1.6-8.6); Neutrophils % (auto) 59.1 % (37.0-80.0); Platelet Count (auto) 328 10^3/uL (140-450); Red Blood Cells 5.01 10^6/uL (4.0-5.20); Red Cell Distribution Width 14.3 % (11.8-14.3); White Blood Cell 8.1 10^3/uL (4.4-10.8)
[2020-09-01 13:06] LABS: Urine Bacteria FEW /hpf (None Seen); Urine Blood Negative /uL (Negative); Urine Mucus FEW (None Seen); Urine Specific Gravity 1.015 (1.001-1.035); Urine WBC 1 /hpf (0 - 5)
[2020-09-01 13:19] LABS: Albumin 3.9 g/dL (3.4-5.0); Potassium 3.7 mmol/L (3.5-5.1)
[2020-09-01 13:19] LABS: Alcohol, Urine < 3.0 mg/dL (0-10); Amphetamine Screen, Urine NEGATIVE (NEGATIVE); Barbiturate Scree,Urine NEGATIVE (NEGATIVE); Benzodiazephine Screen, Urine NEGATIVE (NEGATIVE); Cannabinoid Screen, Urine NEGATIVE (NEGATIVE); Cocaine Screen, Urine NEGATIVE (NEGATIVE); Opiate Scree,Urine NEGATIVE (NEGATIVE); Phencyclidine Screen, Urine NEGATIVE (NEGATIVE)
[2020-09-01 13:22] LABS: BUN/Creatinine Ratio 15.2; Bilirubin, Total 0.3 mg/dL (0.2-1.0); Total Protein 7.6 g/dL (6.4-8.2)
[2020-09-01 15:42] VITALS: BP 128/80
== END 2020-09-01 15:46 | disposition home or self-care (01) ==
LOC: ER 11:11
DX: N39.0 Urinary tract infection, site not specified (principal); K58.9 Irritable bowel syndrome, unspecified; Z90.710 Acquired absence of both cervix and uterus; Z98.51 Tubal ligation status
CPT/HCPCS: 36415; 74176; 80053; 80307; 81001; 82150; 83690; 84702; 85025

== ENCOUNTER 2021-07-01 12:52 | Emergency (ER) | payer MEDICAID ==
[~2021-07-01] VITALS: Ht 165.1 cm; Wt 81.6 kg
[2021-07-01 13:35] LABS: Urine Bacteria FEW /hpf (None Seen); Urine Blood TRACE /uL (Negative); Urine Specific Gravity 1.014 (1.001-1.035); Urine WBC 7 /hpf (0 - 5)
[2021-07-01 13:44] VITALS: BP 139/88
[2021-07-01 13:47] LABS: Basophils # (auto) 0.1 10 ^3/uL (0-0.2); Basophils % (auto) 1.3 % (0.0-2.0); Eosinophils # (auto) 0.1 10 ^3/uL (0-0.8); Eosinophils % (auto) 2.1 % (0.0-7.0); Hematocrit 40.3 % (36.0-46.0); Hemoglobin 13.6 g/dL (12.2-16.2); Lymphocytes # (auto) 2.4 10 ^3/uL (0.4-5.4); Lymphocytes % (auto) 33.7 % (10.0-50.0); Mean Corpuscular Hemoglobin 29.8 pg (28.0-32.0); Mean Corpuscular Hgb Conc. 33.8 g/dL (32.0-36.0); Mean Corpuscular Volume 88.2 fL (80.0-100.0); Monocytes # (auto) 0.5 10 ^3/uL (0-1.3); Neutrophils % (auto) 55.9 % (37.0-80.0); Nucleated Red Blood Cells % 0.1 %; Red Blood Cells 4.57 10^6/uL (4.0-5.20); Red Cell Distribution Width 13.6 % (11.8-14.3); White Blood Cell 7.1 10^3/uL (4.4-10.8)
[2021-07-01 14:01] LABS: Calcium 8.8 mg/dL (8.5-10.1); Potassium 3.7 mmol/L (3.5-5.1)
[2021-07-01 14:06] LABS: Albumin 3.5 g/dL (3.4-5.0); Bilirubin, Total 0.2 mg/dL (0.2-1.0)
== END 2021-07-01 16:28 | disposition home or self-care (01) ==
LOC: ER 12:54
DX: N39.0 Urinary tract infection, site not specified (principal); Z90.710 Acquired absence of both cervix and uterus; Z79.899 Other long term (current) drug therapy
CPT/HCPCS: 36415; 74176; 80053; 81001; 83690; 85025

== ENCOUNTER 2021-08-08 19:11 | Emergency (ER) | payer MEDICAID ==
[~2021-08-08] VITALS: Ht 165.1 cm; Wt 86.2 kg
[2021-08-08 19:11] VITALS: BP 152/103
== END 2021-08-08 20:20 | disposition left against medical advice (07) ==
LOC: ER 19:13
DX: R07.89 Other chest pain (principal); I10 Essential (primary) hypertension; F41.9 Anxiety disorder, unspecified; Z90.710 Acquired absence of both cervix and uterus; Z98.51 Tubal ligation status
CPT/HCPCS: 93005

== ENCOUNTER 2021-10-02 00:04 | Emergency (ER) | payer MEDICAID ==
[~2021-10-02] VITALS: Ht 165.1 cm; Wt 81.6 kg
[2021-10-02 00:14] VITALS: BP 151/101
[2021-10-02 01:19] LABS: Basophils # (auto) 0.1 10 ^3/uL (0-0.2); Basophils % (auto) 1.1 % (0.0-2.0); Eosinophils # (auto) 0.1 10 ^3/uL (0-0.8); Eosinophils % (auto) 1.3 % (0.0-7.0); Hematocrit 42.9 % (36.0-46.0); Hemoglobin 14.6 g/dL (12.2-16.2); Lymphocytes # (auto) 2.2 10 ^3/uL (0.4-5.4); Lymphocytes % (auto) 28.9 % (10.0-50.0); Mean Corpuscular Hemoglobin 29.9 pg (28.0-32.0); Mean Corpuscular Volume 87.8 fL (80.0-100.0); Monocytes # (auto) 0.4 10 ^3/uL (0-1.3); Monocytes % (auto) 5.6 % (0.0-12.0); Neutrophils # (auto) 4.9 10 ^3/uL (1.6-8.6); Neutrophils % (auto) 63.1 % (37.0-80.0); Nucleated Red Blood Cells % 0.1 %; Red Blood Cells 4.88 10^6/uL (4.0-5.20); Red Cell Distribution Width 14.4 % (11.8-14.3); White Blood Cell 7.7 10^3/uL (4.4-10.8)
[2021-10-02 01:40] LABS: Calcium 9.2 mg/dL (8.5-10.1); Potassium 4.1 mmol/L (3.5-5.1)
[2021-10-02 01:43] LABS: BUN/Creatinine Ratio 22.4
[2021-10-02 01:45] LABS: Bilirubin, Total 0.3 mg/dL (0.2-1.0); Total Protein 7.5 g/dL (6.4-8.2)
[2021-10-02 03:50] LABS: Urine Bacteria NONE SEEN /hpf (None Seen); Urine Blood Negative /uL (Negative); Urine Specific Gravity 1.023 (1.001-1.035); Urine WBC 1 /hpf (0 - 5)
== END 2021-10-02 07:10 | disposition left against medical advice (07) ==
LOC: ER 00:04
DX: K29.70 Gastritis, unspecified, without bleeding (principal); I10 Essential (primary) hypertension; Z90.49 Acquired absence of other specified parts of digestive tract; Z90.710 Acquired absence of both cervix and uterus; Z79.899 Other long term (current) drug therapy
CPT/HCPCS: 36415; 80053; 81001; 84702; 85025

== ENCOUNTER 2021-12-17 14:34 | Emergency (ER) | payer MEDICAID ==
[~2021-12-17] VITALS: Ht 165.1 cm; Wt 81.6 kg
[2021-12-17 16:10] VITALS: BP 147/72
[2021-12-17] MEDS ORDERED: TETRACAINE HCL 0.5% OPTH(EYE) SOLN 4ML RIGHTEYE ONE (18:00)
== END 2021-12-17 18:10 | disposition home or self-care (01) ==
LOC: ER 14:34
DX: S05.01XA Injury of conjunctiva and corneal abrasion without foreign body, right eye, initial encounter (principal); I10 Essential (primary) hypertension; Z90.49 Acquired absence of other specified parts of digestive tract; Z98.51 Tubal ligation status; Z90.710 Acquired absence of both cervix and uterus; X58.XXXA Exposure to other specified factors, initial encounter; Y93.89 Activity, other specified; Y92.89 Other specified places as the place of occurrence of the external cause; Y99.8 Other external cause status